=== PATIENT | female | born 1940 | race Caucasian/White ===

== ENCOUNTER 2017-02-09 20:24 | Emergency (ER) | payer MEDICARE, OTHER ==
--- NOTE | 2017-02-09 21:28 | RAD ---
CHEST ONE VIEW: History: Cough. Comparison: None. FINDINGS: There are chronic pleural and parenchymal changes in the lung bases. No pneumothorax. No focal airspa ce consolidation, pneumothorax or effusion. IMPRESSION: 1. No acute intrathoracic abnormality. 2. Partially calcified likely scar versus granulomata right upper lobe. POS: [facility]
[2017-02-09 21:51] LABS: #Basophils 0.1 thou/uL (0.0-0.2); #Eosinphils 0.1 thou/uL (0.0-0.7); #Lymphocytes 1.1 thou/uL (1.20-3.40); #Monocytes 0.8 thou/uL (0.11-0.59); #Neutrophils 7.8 thou/uL (1.40-6.50); %Basophils 0.5 % (0.0-1.0); %Eosinophils 0.7 % (0.0-10.0); %Lymphocytes 11.4 % (21.0-51.0); %Monocytes 8.4 % (0.0-10.0); Hematocrit 40.6 % (36.0-47.0); Mean Platelet Volume 6.6 fL (7.4-10.4); Red Blood Cell (RBC) Count 4.19 mill/uL (4.20-5.40); White Blood Cell (WBC) Count 9.8 thou/uL (4.8-10.8)
[2017-02-09 22:03] LABS: Lactic Acid - Sepsis 1.2 mmol/L (0.5-2.2)
[2017-02-09 22:06] LABS: ALT (SGPT) 12 U/L (8-55); AST (SGOT) 17 U/L (5-34); Alkaline Phosphatase 81 U/L (40-150); Anion Gap 13 mmol/L (10-20); BUN (Urea Nitrogen) 14 mg/dL (9.8-20.1); Bilirubin, Total 0.9 mg/dL (0.2-1.2); CK (CPK) 185 U/L (29-168); Calc. Creatinine Clearance 0 mL/min (70-130); Calcium 9.7 mg/dL (7.8-10.44); Carbon Dioxide 24 mmol/L (23-31); Chloride 102 mmol/L (98-107); Estimated GFR-MDRD 63; Globulin 3.7 g/dL (2.4-3.5); Lipase 9 U/L (8-78); Magnesium 1.8 mg/dL (1.6-2.6); Protein, Total 7.8 g/dL (6.0-8.3)
[2017-02-09 22:11] LABS: Troponin I Less than 0.010 ng/mL (< 0.028)
[2017-02-09] MEDS ORDERED: HYDROcodone/Chlorphen Polis 5 ML UDCUP PO SCH (22:30)
[2017-02-09] MEDS ORDERED: Ketorolac Tromethamine 30 MG/ML VIAL ONE (23:50)
[2017-02-10 00:12] LABS: Bilirubin Negative (Negative); Blood, Urine Negative (Negative); Glucose, Urine (Dipstick) Negative (Negative); Ketone, Urine Negative (Negative); Nitrite Negative (Negative); Protein, Urine (Dipstick) Negative (Neg-Trace)
[2017-02-10] MEDS ORDERED: predniSONE 20 MG TAB ONE (01:16)
--- NOTE | 2017-02-10 07:58 | CT ---
PRELIMINARY REPORT/[facility]/EMERGENCY AFTER HOURS PROCEDURE: EXAM: CT Angiography Chest With Intravenous Contrast CLINICAL HISTORY: 76 years old, female; Pain and signs and symptoms; Cough; Symptoms not specified; Chest pain; Patient HX: F76 presents to ed C/O cough and runny nose and low grade fever since monday. Pt reports she sta rted feeling better yesterday but started having post tussive emesis and chest pain with coughing tod ay. Pt was seen by pcp today and put on abx and tessalon perles but she hasn't been able to keep the doses down. Denies HX of copd or asthma. TECHNIQUE: Axial computed tomographic angiography images of the chest with intravenous contrast using pulmonary embolism protocol. CONTRAST: 63 mL of ISOVUE 370 administered intravenously. COMPARISON: No relevant prior studies available. FINDINGS: Pulmonary arteries: No pulmonary embolism. Aorta: Atherosclerotic calcification of the thoracic aorta, without aneurysm or dissection. Lungs: Normal. Pleural space: Normal. No significant effusion. No pneumothorax. Heart: 3 vessel coronary artery disease. Mediastinum: Small-sized hiatal hernia. Bones/joints: Exostosis arising from the right posterior fifth rib, with associated 1.7 cm soft tissu e attenuation extrapleural nodule, possibly scarring. No acute fracture. No dislocation. Soft tissues: Bilateral breast implants. Multiple calcifications and soft tissue attenuation nodules within the anterior chest wall and breast soft tissues, likely benign. Lymph nodes: Several small lymph nodes within the mediastinum, likely reactive, but nonspecific. IMPRESSION: 1. No pulmonary embolism. 2. Exostosis arising from the right posterior fifth rib, with associated 1.7 cm soft tissue attenuati on extrapleural nodule, possibly scarring. Recommend comparison to previous studies to confirm stabil ity. 3. Incidental/non-acute findings are described above. Thank you for allowing us to participate in the care of your patient. Dictated and Authenticated by: Reg Abernathy MD 02/10/2017 12:22 AM Central Time ([place] & [place]) FINAL REPORT EMERGENCY AFTER HOURS CT ANGIOGRAM THORAX WITH IV CONTRAST AND 3D RECONSTRUCTIONS: Date: 02/10/17 HISTORY: Chest pain, cough, and runny nose, as well as low grade fever since Monday. IMPRESSION: 1. No CT evidence of a pulmonary embolus. 2. Vascular calcifications in the thoracic aorta. The thoracic aorta is normal in caliber without ev idence of an aortic dissection. 3. Small hiatal hernia. 4. Exostosis arising from right posterior medial fifth rib with a associated soft tissue density. Ho wever, this was also present on the prior CT examination in 2008 and is suggestive of a more chronic process. 5. Bibasilar atelectasis versus scarring. 6. Stable bilateral breast implants when compared to study on 06/02/08. Multiple calcifications and soft tissue nodules are again seen in anterior chest wall which may be related to multiple injection granulomata and/or areas of scarring. 7. Prominent mediastinal lymph nodes also seen on prior exam in 2008 and similar to that study inclu ding paratracheal and subcarinal lymph nodes. Findings are in agreement with the preliminary report by [facility]. POS: [id number]
== END 2017-02-10 01:22 | disposition home or self-care (01) ==
LOC: ERS 20:24
DX: R05 Cough (principal); E78.5 Hyperlipidemia, unspecified; I10 Essential (primary) hypertension; Z79.899 Other long term (current) drug therapy
CPT/HCPCS: 36415; 71010; 71275; 80053; 81003; 82553; 83605; 83690; 83735; 84484; 85025; 93005; 96361; 96374; J1885; J7506

== ENCOUNTER 2019-11-12 09:38 | Outpatient (CLI) | payer MEDICARE, OTHER ==
--- NOTE | 2019-11-12 09:58 | RAD ---
PA AND LATERAL CHEST: Date: 11/13/2019 HISTORY: Dyspnea. COMPARISON: 02/09/2017. FINDINGS: No confluent consolidation or infiltrate. There is increased hazy density in the right lower lung whi ch is of uncertain significance. Overlying breast implants may be contributing to this. Vascularity i s normal. Heart size normal. IMPRESSION: Question new hazy infiltrate in the right lower lung. Recommend clinical correlation and follow-up as indicated. POS: [facility]
== END 2019-11-12 09:39 | disposition home or self-care (01) ==
LOC: BICRAD 09:38
PROVIDERS: ATTEND Internal Medicine Critical Care Medicine
DX: R06.00 Dyspnea, unspecified (principal)
CPT/HCPCS: 36415; 71046; 80053; 80061; 83036

== ENCOUNTER 2019-11-25 08:33 | Outpatient (CLI) | payer MEDICARE, OTHER ==
--- NOTE | 2019-11-25 09:05 | CT ---
CT HEAD WITHOUT IV CONTRAST COMPARISON: 9. HISTORY: Headache and dizziness. TECHNIQUE: Axial CT imaging at 5 mm intervals from vertex through skull base without contrast FINDINGS: There is no evidence of an acute infarction, hemorrhage, mass effect, or midline shift. The ventricul ar system is normal in size, shape, and position. Minimal mucosal thickening right maxillary antrum is present. Osseous structures appear intact. IMPRESSION: 1. No acute intracranial abnormality demonstrated.
--- NOTE | 2019-11-25 10:09 | RAD ---
THORACOLUMBAR SPINE 2 VIEWS: HISTORY: Back pain without injury. Mid lower back pain. No radiculopathy. FINDINGS: AP and lateral views of the lower thoracic and lumbar spine demonstrate fairly severe dextroscoliosis of the lumbar vertebral column and levoscoliosis of the upper lumbar lower thoracic vertebral column . Extensive multilevel disk-osteophytosis and facet arthrosis. No acute fracture demonstrated. IMPRESSION: 1. Scoliosis as above. 2. Extensive spondylosis. POS: [facility]
== END 2019-11-25 08:34 | disposition home or self-care (01) ==
LOC: BICCT 08:33
PROVIDERS: ATTEND Internal Medicine
DX: R42 Dizziness and giddiness (principal); M54.9 Dorsalgia, unspecified; M47.815 Spondylosis without myelopathy or radiculopathy, thoracolumbar region; M41.9 Scoliosis, unspecified
CPT/HCPCS: 70450; 72080

== ENCOUNTER 2020-01-24 13:36 | Outpatient (CLI) | payer MEDICARE, OTHER ==
--- NOTE | 2020-01-24 14:25 | RAD ---
EXAM: Chest PA and lateral: HISTORY: Shortness of breath COMPARISON: 11/12/2019 FINDINGS: Heart: Normal cardiac silhouette Aorta: Atherosclerosis Pulmonary vessels: Normal Costophrenic angles: Costophrenic angles are clear. Lungs: Mild hyperinflation with chronic changes. Stable opacities predominantly in the lung bases. Pneumothorax: No pneumothorax Osseous structures: No osseous abnormalities IMPRESSION: 1. No significant interval change. No acute cardiopulmonary process. 2. Chronic changes the lung bases 3. Mild hyperinflation.
== END 2020-01-24 13:37 | disposition home or self-care (01) ==
LOC: BICRAD 13:36
PROVIDERS: ATTEND Internal Medicine Critical Care Medicine
DX: R06.00 Dyspnea, unspecified (principal); R91.8 Other nonspecific abnormal finding of lung field
CPT/HCPCS: 71046

== ENCOUNTER 2021-02-11 12:23 | Outpatient (CLI) | payer MEDICARE | END 2021-02-11 12:24 | disposition home or self-care (01) | LOC: BICRAD 12:23 | PROVIDERS: ATTEND Internal Medicine Critical Care Medicine | DX: R06.00 Dyspnea, unspecified (principal) | CPT/HCPCS: 71046 ==

== ENCOUNTER 2021-06-19 06:18 | Emergency (ER) | payer MEDICARE ==
[2021-06-19 07:12] LABS: #Eosinphils 0.1 thou/uL (0.0-0.7); #Lymphocytes 1.2 thou/uL (1.20-3.40); #Monocytes 0.3 thou/uL (0.11-0.59); %Basophils 0.5 % (0.0-1.0); %Eosinophils 1.3 % (0.0-10.0); %Lymphocytes 25.3 % (21.0-51.0); %Monocytes 7.5 % (0.0-10.0); %Neutrophils 65.5 % (42.0-75.0); Hemoglobin 13.5 g/dL (12.0-16.0); Mean Corpuscular HGB CONC 32.8 g/dL (32.0-36.0); Mean Corpuscular Volume 97.5 fL (78.0-98.0); Mean Platelet Volume 6.6 fL (7.4-10.4); Platelet Count 273 thou/uL (130-400); RBC Distribution Width 12.1 % (11.5-14.5); Red Blood Cell (RBC) Count 4.22 mill/uL (4.20-5.40); White Blood Cell (WBC) Count 4.6 thou/uL (4.8-10.8)
[2021-06-19 07:19] LABS: Bilirubin Negative (Negative); Blood, Urine Negative (Negative); Clarity Clear (Clear); Glucose, Urine (Dipstick) Normal (Negative); Ketone, Urine Negative (Negative); Leukocyte Negative Leu/uL (Negative); Nitrite 1+ (Negative); Protein, Urine (Dipstick) Negative (Neg-Trace); RBC/HPF 0-3 HPF (0-3); Specific Gravity, Urine 1.014 (1.002-1.036); Squamous Epithelial 0-3 HPF (0-3); Urobilinogen Normal mg/dL (Less than 2); WBC/HPF 0-3 HPF (0-3); pH, Urine 6.5 (5.0-9.0)
[2021-06-19 07:21] LABS: Bacteria/HPF 1+ HPF (None Seen)
[2021-06-19 07:30] LABS: ALT (SGPT) 18 U/L (8-55); AST (SGOT) 20 U/L (5-34); Albumin 4.2 g/dL (3.4-4.8); Alkaline Phosphatase 79 U/L (40-110); Anion Gap 16 mmol/L (10-20); BUN (Urea Nitrogen) 18 mg/dL (9.8-20.1); Bilirubin, Total 0.4 mg/dL (0.2-1.2); Calc. Creatinine Clearance 0 mL/min (70-130); Calcium 9.6 mg/dL (7.8-10.44); Carbon Dioxide 25 mmol/L (23-31); Chloride 100 mmol/L (98-107); Globulin 3.5 g/dL (2.4-3.5); Glucose 136 mg/dL (83-110); Lipase 30 U/L (8-78); Potassium 4.2 mmol/L (3.5-5.1); Protein, Total 7.7 g/dL (5.8-8.1); Sodium 137 mmol/L (136-145)
[2021-06-19] MEDS ORDERED: Iopamidol-370 76% 500 ML 1 ML ONE (10:28)
== END 2021-06-19 10:14 | disposition home or self-care (01) ==
LOC: ERS 06:18
DX: N39.0 Urinary tract infection, site not specified (principal); I10 Essential (primary) hypertension; E78.5 Hyperlipidemia, unspecified; Z79.899 Other long term (current) drug therapy
CPT/HCPCS: 36415; 74177; 80053; 81003; 81015; 83690; 85025; 87086; 93005; Q9967

== ENCOUNTER 2021-08-11 09:53 | Outpatient (CLI) | payer MEDICARE | END 2021-08-11 09:54 | disposition home or self-care (01) | LOC: BICULT 09:53 | PROVIDERS: ATTEND Physician Assistant Medical | DX: R10.11 Right upper quadrant pain (principal); K76.0 Fatty (change of) liver, not elsewhere classified | CPT/HCPCS: 76705 ==

== ENCOUNTER 2021-12-24 12:18 | Outpatient (CLI) | payer MEDICARE | END 2021-12-24 12:19 | disposition home or self-care (01) | LOC: TBSIIMAG 12:18 | PROVIDERS: ATTEND Neurological Surgery | DX: M47.26 Other spondylosis with radiculopathy, lumbar region (principal); M47.22 Other spondylosis with radiculopathy, cervical region; M50.121 Cervical disc disorder at C4-C5 level with radiculopathy | CPT/HCPCS: 72141; 72148 ==

== ENCOUNTER 2022-03-22 11:34 | Outpatient (CLI) | payer MEDICARE | END 2022-03-22 11:35 | disposition home or self-care (01) | LOC: BICRAD 11:34 | PROVIDERS: ATTEND Internal Medicine | DX: M54.9 Dorsalgia, unspecified (principal); R07.81 Pleurodynia; M47.814 Spondylosis without myelopathy or radiculopathy, thoracic region | CPT/HCPCS: 72072 ==

== ENCOUNTER 2022-05-04 07:52 | Outpatient (CLI) | payer MEDICARE | END 2022-05-04 07:53 | disposition home or self-care (01) | LOC: RAD 07:52 | PROVIDERS: ATTEND Internal Medicine Critical Care Medicine | DX: R06.00 Dyspnea, unspecified (principal); J98.4 Other disorders of lung | CPT/HCPCS: 71046 ==

== ENCOUNTER 2022-07-04 10:54 | Outpatient (CLI) | payer MEDICARE | END 2022-07-04 10:55 | disposition home or self-care (01) | LOC: BICRAD 10:54 | PROVIDERS: ATTEND Internal Medicine | DX: R10.9 Unspecified abdominal pain (principal); R31.9 Hematuria, unspecified | CPT/HCPCS: 74019; 81001; 87086 ==

== ENCOUNTER 2022-11-25 01:51 | Emergency (ER) | payer MEDICARE ==
[2022-11-25 02:54] LABS: Bacteria/HPF None Seen HPF (None Seen); Bilirubin Negative (Negative); Blood, Urine 3+ (Negative); CAUTI Indications for Culture Pelvic or flank pain; Clarity Clear (Clear); Glucose, Urine (Dipstick) Normal (Negative); Ketone, Urine Negative (Negative); Leukocyte Negative Leu/uL (Negative); Nitrite Negative (Negative); Protein, Urine (Dipstick) Negative (Neg-Trace); RBC/HPF Greater than 50 HPF (0-3); Specific Gravity, Urine 1.008 (1.002-1.036); Squamous Epithelial None Seen HPF (0-3); Urobilinogen Normal mg/dL (Less than 2); WBC/HPF 0-3 HPF (0-3)
[2022-11-25 02:55] LABS: Urine Culture Reflex No No
[2022-11-25] MEDS ORDERED: Ondansetron PF 4 MG/2 ML Vial ONE (02:56)
[2022-11-25] MEDS ORDERED: Famotidine/PF 20 mg/2ml Vial ONE (02:56)
[2022-11-25] MEDS ORDERED: Morphine 4 MG/ML VIAL ONE ×2 (02:56→03:31)
[2022-11-25 02:57] LABS: #Eosinphils 0.1 thou/uL (0.0-0.7); #Monocytes 0.5 thou/uL (0.11-0.59); #Neutrophils 4.5 thou/uL (1.40-6.50); %Basophils 0.6 % (0.0-1.0); %Eosinophils 1.4 % (0.0-10.0); %Lymphocytes 22.9 % (21.0-51.0); %Monocytes 7.2 % (0.0-10.0); %Neutrophils 67.7 % (42.0-75.0); Hematocrit 39.2 % (36.0-47.0); Hemoglobin 13.1 g/dL (12.0-16.0); Mean Corpuscular HGB CONC 33.4 g/dL (32.0-36.0); Mean Corpuscular Hemoglobin 31.1 pg (27.0-31.0); Mean Corpuscular Volume 93.1 fl (78.0-98.0); Mean Platelet Volume 9.4 fL (7.4-10.4); Platelet Count 256 10x3/uL (130-400); RBC Distribution Width 12.4 % (11.5-14.5); Red Blood Cell (RBC) Count 4.21 mill/uL (4.20-5.40); White Blood Cell (WBC) Count 6.6 10x3/uL (4.8-10.8)
[2022-11-25 03:23] LABS: Troponin I 0.014 ng/mL (< 0.028)
[2022-11-25 03:27] LABS: ALT (SGPT) 17 U/L (8-55); AST (SGOT) 18 U/L (5-34); Albumin 4.2 g/dL (3.4-4.8); Alkaline Phosphatase 87 U/L (40-110); Anion Gap 12 mmol/L (10-20); BUN (Urea Nitrogen) 11 mg/dL (9.8-20.1); Bilirubin, Total 0.7 mg/dL (0.2-1.2); Calc. Creatinine Clearance 0 mL/min (70-130); Calcium 9.6 mg/dL (7.8-10.44); Carbon Dioxide 27 mmol/L (23-31); Chloride 100 mmol/L (98-107); Estimated GFR 68; Globulin 3.5 g/dL (2.4-3.5); Glucose 139 mg/dL (83-110); Lipase 14 U/L (8-78); Potassium 3.4 mmol/L (3.5-5.1); Protein, Total 7.7 g/dL (5.8-8.1); Sodium 136 mmol/L (136-145)
[2022-11-25] MEDS ORDERED: Dicyclomine 20 MG TAB ONE (05:36)
[2022-11-25 06:08] LABS: Troponin I Less than 0.010 ng/mL (< 0.028)
[2022-11-25] MEDS ORDERED: Ketorolac Tromethamine 30 MG/ML VIAL ONE (06:46)
[2022-11-25] MEDS ORDERED: Iopamidol-370 76% 500 ML MDV (1 ML CHARGE) ONE (15:23)
== END 2022-11-25 08:20 | disposition home or self-care (01) ==
LOC: ERS 01:51
DX: N13.2 Hydronephrosis with renal and ureteral calculous obstruction (principal); R31.9 Hematuria, unspecified; R91.1 Solitary pulmonary nodule; E78.5 Hyperlipidemia, unspecified; I10 Essential (primary) hypertension; Z79.899 Other long term (current) drug therapy
CPT/HCPCS: 36415; 71275; 74174; 80053; 81001; 83690; 84484; 85025; 87086; 93005; 96361; 96374; 96375; J1885; J2270; J2405; Q9967; S0028

== ENCOUNTER 2022-11-28 10:11 | Inpatient (IN) | payer MEDICARE ==
[~2022-11-28 10:11] MED LIST: Iopamidol-370 76% 500 ML MDV (1 ML CHARGE) ONE
[2022-11-28] MEDS ORDERED: Ketorolac Tromethamine 30 MG/ML VIAL ONE (11:04)
[2022-11-28] MEDS ORDERED: Morphine 4 MG/ML VIAL ONE ×2 (11:04→13:59)
[2022-11-28 11:41] LABS: #Monocytes 0.6 thou/uL (0.11-0.59); #Neutrophils 12.3 thou/uL (1.40-6.50); %Basophils 0.1 % (0.0-1.0); %Lymphocytes 3.6 % (21.0-51.0); %Monocytes 4.5 % (0.0-10.0); %Neutrophils 90.5 % (42.0-75.0); Hematocrit 37.9 % (36.0-47.0); Hemoglobin 12.8 g/dL (12.0-16.0); Mean Corpuscular HGB CONC 33.8 g/dL (32.0-36.0); Mean Corpuscular Hemoglobin 31.1 pg (27.0-31.0); Mean Corpuscular Volume 92.2 fl (78.0-98.0); Platelet Count 203 10x3/uL (130-400); RBC Distribution Width 12.4 % (11.5-14.5); Red Blood Cell (RBC) Count 4.11 mill/uL (4.20-5.40); White Blood Cell (WBC) Count 13.7 10x3/uL (4.8-10.8)
[2022-11-28 11:43] LABS: ALT (SGPT) 36 U/L (8-55); AST (SGOT) 38 U/L (5-34); Albumin 3.8 g/dL (3.4-4.8); Alkaline Phosphatase 96 U/L (40-110); Anion Gap 18 mmol/L (10-20); BUN (Urea Nitrogen) 13 mg/dL (9.8-20.1); Bilirubin, Total 3.1 mg/dL (0.2-1.2); Calc. Creatinine Clearance 0 mL/min (70-130); Carbon Dioxide 24 mmol/L (23-31); Chloride 95 mmol/L (98-107); Estimated GFR 46; Globulin 3.4 g/dL (2.4-3.5); Glucose 154 mg/dL (83-110); Lipase Less than 4 U/L (8-78); Potassium 3.2 mmol/L (3.5-5.1); Protein, Total 7.2 g/dL (5.8-8.1); Sodium 134 mmol/L (136-145)
[2022-11-28 11:45] LABS: Troponin I 0.077 ng/mL (< 0.028)
[2022-11-28 11:53] LABS: INR-International Normal Ratio 1.1; PTT 31.5 sec (22.9-36.1)
[2022-11-28] MEDS ORDERED: Aspirin 325 MG TAB ONE (12:52)
[2022-11-28] MEDS ORDERED: Potassium Chloride 20 MEQ TAB ONE (12:52)
[2022-11-28] MEDS ORDERED: Piperacillin/Tazobactam 4.5 GM VIAL ONE (14:00)
[2022-11-28] MEDS ORDERED: Ondansetron PF 4 MG/2 ML Vial IVP PRN (14:57)
[2022-11-28 15:15] LABS: Troponin I 0.068 ng/mL (< 0.028)
[2022-11-28 15:21] LABS: Magnesium 1.7 mg/dL (1.6-2.6)
[2022-11-28] MEDS: Heparin 5,000 UNITS/ML VIAL SC SCH ×2 (15:59→20:50)
[2022-11-28] MEDS: Lactated Ringer's 1,000 ML IV SCH (16:16)
[2022-11-28] MEDS ORDERED: Morphine 4 MG/ML VIAL SLOW IVP PRN (16:48)
[2022-11-28] MEDS ORDERED: Piperacillin/Tazobactam 3.375 GM in Sodium Chloride 0.9% 100 ML IVPB SCH (18:00)
[2022-11-28 18:02] LABS: Lactic Acid 1.8 mmol/L (0.5-2.2)
[2022-11-28 18:13] LABS: Troponin I 0.071 ng/mL (< 0.028)
[2022-11-28] MEDS: hydrALAZINE 20 MG/ML VIAL SLOW IVP PRN (18:26)
[2022-11-28] MEDS: Piperacillin/Tazobactam 3.375 GM in Sodium Chloride 0.9% 100 ML IVPB SCH (18:27)
[2022-11-28] MEDS: Ketorolac Tromethamine 30 MG/ML VIAL IVP PRN (20:49)
[2022-11-28] MEDS ORDERED: Electrolyte Replacement Protocol 1 EACH FS SCH (23:15)
[2022-11-29] MEDS: Piperacillin/Tazobactam 3.375 GM in Sodium Chloride 0.9% 100 ML IVPB SCH ×3 (03:59→18:48)
[2022-11-29 05:46] LABS: ALT (SGPT) 35 U/L (8-55); AST (SGOT) 41 U/L (5-34); Albumin 3.3 g/dL (3.4-4.8); Alkaline Phosphatase 98 U/L (40-110); Anion Gap 16 mmol/L (10-20); BUN (Urea Nitrogen) 18 mg/dL (9.8-20.1); Bilirubin, Total 1.9 mg/dL (0.2-1.2); Calc. Creatinine Clearance 65 mL/min (70-130); Calcium 8.6 mg/dL (7.8-10.44); Carbon Dioxide 22 mmol/L (23-31); Chloride 101 mmol/L (98-107); Estimated GFR 53; Globulin 3.3 g/dL (2.4-3.5); Glucose 103 mg/dL (83-110); Magnesium 1.8 mg/dL (1.6-2.6); Potassium 3.7 mmol/L (3.5-5.1); Protein, Total 6.6 g/dL (5.8-8.1); Sodium 135 mmol/L (136-145)
[2022-11-29] MEDS ORDERED: Magnesium 2 GM/50 ML(in water) 2 GM in Premix Bag 1 BAG IVPB SCH (06:15)
[2022-11-29] MEDS ORDERED: Ondansetron PF 4 MG/2 ML Vial ONE (06:51)
[2022-11-29] MEDS ORDERED: fentaNYL PF 100 MCG/2 ML SYRINGE ONE (07:09)
[2022-11-29] MEDS ORDERED: Iopamidol 30 ML ONE (07:10)
[2022-11-29] MEDS ORDERED: PROPOFOL 200 MG/20 ML VIAL ONE (07:39)
[2022-11-29] MEDS ORDERED: Lidocaine 1% PF 5 ML VIAL ONE (07:39)
[2022-11-29] MEDS ORDERED: Phenazopyridine HCl 100 MG TAB PO PRN (08:26)
[2022-11-29] MEDS: Lactated Ringer's 1,000 ML IV SCH ×2 (09:27→18:47)
[2022-11-29] MEDS: Trospium 20 MG TAB PO SCH ×2 (09:28→21:17)
[2022-11-29] MEDS: Amlodipine 5 MG TAB PO SCH (09:29)
[2022-11-29] MEDS: Rosuvastatin 10 MG TAB PO SCH (09:29)
[2022-11-29] MEDS: Ketorolac Tromethamine 30 MG/ML VIAL IVP PRN (09:30)
[2022-11-29] MEDS: Heparin 5,000 UNITS/ML VIAL SC SCH ×3 (09:42→21:17)
[2022-11-29] MEDS ORDERED: Iopamidol 370 76% 100 ML VIAL ONE (10:27)
[2022-11-29 10:59] LABS: Hematocrit 32.4 % (36.0-47.0); Hemoglobin 10.7 g/dL (12.0-16.0); Mean Corpuscular Hemoglobin 30.6 pg (27.0-31.0); Mean Corpuscular Volume 92.6 fl (78.0-98.0); Mean Platelet Volume 10.4 fL (7.4-10.4); Platelet Count 131 10x3/uL (130-400); RBC Distribution Width 12.9 % (11.5-14.5); White Blood Cell (WBC) Count 12.4 10x3/uL (4.8-10.8)
[2022-11-29 11:15] LABS: Delete Auto Diff?? YES; Manual Diff?? YES
[2022-11-29 12:20] LABS: Band 33 % (5-11); Burr Cells SLIGHT = 2-5 cells HPF (0-1); CellaVision Operator ID LAB.GE; Giant Platelets 0.8 % (0-5); Large Platelets 2.5 % (0-5); Lymphocytes 3 % (21-51); Metamyelocyte 6 % (0-0); Monocytes 3 % (0-10); Myelocyte 1 % (0-0); Neutrophil 53 % (42-75); Platelet Adequacy Comment Platelets Normal; Poikilocytosis SLIGHT = 6-15 cells HPF (0-5); Polychromasia SLIGHT = 2-3 cells HPF (0-2); Reactive Lymphocytes 2 % (0-10); Total Cell Count 120; Vacuoles MODERATE
[2022-11-29] MEDS ORDERED: Ketorolac Tromethamine 30 MG/ML VIAL IVP SCH (12:30)
[2022-11-29] MEDS: Senokot S 8.6-50 MG TAB PO PRN (13:25)
[2022-11-29] MEDS ORDERED: Morphine 4 MG/ML VIAL ONE (16:28)
[2022-11-29] MEDS: Acetaminophen 325 MG TAB PO PRN (21:16)
[2022-11-30] MEDS: Piperacillin/Tazobactam 3.375 GM in Sodium Chloride 0.9% 100 ML IVPB SCH ×3 (04:13→18:11)
[2022-11-30 05:17] LABS: #Eosinphils 0.1 thou/uL (0.0-0.7); #Monocytes 0.7 thou/uL (0.11-0.59); #Neutrophils 8.3 thou/uL (1.40-6.50); %Basophils 0.3 % (0.0-1.0); %Eosinophils 1.3 % (0.0-10.0); %Lymphocytes 8.2 % (21.0-51.0); %Monocytes 6.8 % (0.0-10.0); %Neutrophils 82.7 % (42.0-75.0); Hematocrit 32.6 % (36.0-47.0); Hemoglobin 10.7 g/dL (12.0-16.0); Mean Corpuscular HGB CONC 32.8 g/dL (32.0-36.0); Mean Corpuscular Hemoglobin 31.1 pg (27.0-31.0); Mean Corpuscular Volume 94.8 fl (78.0-98.0); Mean Platelet Volume 10.4 fL (7.4-10.4); Platelet Count 133 10x3/uL (130-400); RBC Distribution Width 13.2 % (11.5-14.5); Red Blood Cell (RBC) Count 3.44 mill/uL (4.20-5.40); White Blood Cell (WBC) Count 10.1 10x3/uL (4.8-10.8)
[2022-11-30 07:07] LABS: Anion Gap 14 mmol/L (10-20); BUN (Urea Nitrogen) 25 mg/dL (9.8-20.1); Calc. Creatinine Clearance 78 mL/min (70-130); Calcium 8.5 mg/dL (7.8-10.44); Carbon Dioxide 25 mmol/L (23-31); Chloride 102 mmol/L (98-107); Estimated GFR 66; Glucose 82 mg/dL (83-110); Magnesium 2.6 mg/dL (1.6-2.6); Potassium 3.6 mmol/L (3.5-5.1); Sodium 137 mmol/L (136-145)
[2022-11-30] MEDS: Lactated Ringer's 1,000 ML IV SCH ×2 (08:20→21:09)
[2022-11-30] MEDS: Amlodipine 5 MG TAB PO SCH (08:25)
[2022-11-30] MEDS: Senokot S 8.6-50 MG TAB PO PRN (08:26)
[2022-11-30] MEDS: Rosuvastatin 10 MG TAB PO SCH (08:26)
[2022-11-30] MEDS: Trospium 20 MG TAB PO SCH ×2 (08:26→20:56)
[2022-11-30] MEDS: Heparin 5,000 UNITS/ML VIAL SC SCH ×2 (08:27→15:44)
[2022-11-30] MEDS: hydrALAZINE 20 MG/ML VIAL SLOW IVP PRN (12:35)
[2022-11-30] MEDS ORDERED: Morphine 2 MG/ML VIAL SLOW IVP PRN (15:42)
[2022-11-30] MEDS ORDERED: Meperidine HCl/PF 25 MG/ML VIAL SLOW IVP SCH (16:30)
[2022-11-30] MEDS ORDERED: fentaNYL 50 mcg/mL 1 mL Vial SLOW IVP SCH (16:30)
[2022-11-30] MEDS: Acetaminophen 325 MG TAB PO PRN (16:31)
[2022-11-30] MEDS ORDERED: Furosemide 20 MG/2 ML VIAL SLOW IVP SCH (18:15)
[2022-11-30] MEDS ORDERED: dilTIAZem 125 MG in Sodium Chloride 0.9% 100 ML IVPB SCH (18:15)
[2022-11-30] MEDS ORDERED: metroNIDAZOLE 500 MG in Premix Bag 1 BAG IVPB SCH (22:30)
[2022-11-30] MEDS: cefTRIAXone\\ROCEPHIN 2 GM in Sodium Chloride 0.9% 100 ML IVPB SCH (22:56)
[2022-12-01] MEDS: metroNIDAZOLE 500 MG in Premix Bag 1 BAG IVPB SCH ×3 (06:21→21:16)
[2022-12-01] MEDS: Amlodipine 5 MG TAB PO SCH (11:14)
[2022-12-01] MEDS: Rosuvastatin 10 MG TAB PO SCH (11:15)
[2022-12-01] MEDS: Trospium 20 MG TAB PO SCH ×2 (11:15→21:14)
[2022-12-01] MEDS ORDERED: EPINEPHrine 1 MG/ML AMP ONE (11:51)
[2022-12-01] MEDS ORDERED: Bupivacaine 0.25% HCL 30 ML VIAL ONE (11:51)
[2022-12-01] MEDS ORDERED: fentaNYL 50 mcg/mL 1 mL Vial ONE ×3 (12:27→15:14)
[2022-12-01] MEDS ORDERED: fentaNYL PF 100 MCG/2 ML SYRINGE ONE (12:28)
[2022-12-01] MEDS ORDERED: Ketamine 50 MG/ML (10ML VIAL) ONE (12:28)
[2022-12-01] MEDS ORDERED: Ondansetron PF 4 MG/2 ML Vial ONE ×2 (12:53→14:25)
[2022-12-01] MEDS ORDERED: Glycopyrrolate 0.2 MG/ML 5 ML SYRINGE ONE (12:53)
[2022-12-01] MEDS ORDERED: Rocuronium Bromide 10 MG/ML (10ML VIAL) ONE (12:53)
[2022-12-01] MEDS ORDERED: Lidocaine 1% PF 5 ML VIAL ONE (12:53)
[2022-12-01] MEDS ORDERED: NEOSTIGMINE 3 MG/3 ML SYR 3 MG/3 ML SYRINGE ONE (12:53)
[2022-12-01] MEDS ORDERED: PROPOFOL 200 MG/20 ML VIAL ONE (12:53)
[2022-12-01] MEDS ORDERED: Morphine Sulfate 2 MG/ML SYRINGE SLOW IVP PRN (14:58)
[2022-12-01] MEDS ORDERED: Ondansetron HCl/PF 4 MG/2 ML Vial IVP PRN (14:58)
[2022-12-01] MEDS ORDERED: Promethazine HCl 25 MG/ML VIAL IM PRN (14:58)
[2022-12-01] MEDS ORDERED: metroNIDAZOLE 500 MG/100 ML BAG ONE (15:25)
[2022-12-01] MEDS ORDERED: Morphine 4 MG/ML VIAL ONE (15:39)
[2022-12-01] MEDS ORDERED: Morphine 2 MG/ML VIAL ONE ×4 (15:52→16:28)
[2022-12-01] MEDS: Lactated Ringer's 1,000 ML IV SCH ×2 (18:25→22:20)
[2022-12-01] MEDS ORDERED: HYDROcodone/Acetaminophen 5/325 mg Tablet PO SCH (18:45)
[2022-12-01] MEDS: cefTRIAXone\\ROCEPHIN 2 GM in Sodium Chloride 0.9% 100 ML IVPB SCH (22:20)
[2022-12-02] MEDS: HYDROcodone/Acetaminophen 5/325 mg Tablet PO PRN ×5 (00:31→23:09)
[2022-12-02] MEDS: metroNIDAZOLE 500 MG in Premix Bag 1 BAG IVPB SCH ×2 (06:14→14:05)
[2022-12-02] MEDS ORDERED: Furosemide 20 MG/2 ML VIAL SLOW IVP SCH (08:00)
[2022-12-02] MEDS ORDERED: Potassium Chloride 20 MEQ TAB PO SCH (08:00)
[2022-12-02] MEDS: Trospium 20 MG TAB PO SCH ×2 (09:51→21:58)
[2022-12-02] MEDS: Losartan 25 MG TAB PO SCH (09:51)
[2022-12-02] MEDS: dilTIAZem CD 120 MG CAP PO SCH ×2 (09:51→09:52)
[2022-12-02] MEDS: Rosuvastatin 10 MG TAB PO SCH ×2 (11:05→21:58)
[2022-12-02] MEDS ORDERED: Sodium Chloride 0.65% Nasal 44 ML BOT EA NARE PRN (18:07)
[2022-12-02] MEDS: cefTRIAXone\\ROCEPHIN 2 GM in Sodium Chloride 0.9% 100 ML IVPB SCH (23:07)
[2022-12-03] MEDS: HYDROcodone/Acetaminophen 5/325 mg Tablet PO PRN ×3 (06:17→20:34)
[2022-12-03] MEDS ORDERED: Ciprofloxacin 500 MG TAB PO SCH (09:00)
[2022-12-03] MEDS: Losartan 25 MG TAB PO SCH (09:27)
[2022-12-03] MEDS: Trospium 20 MG TAB PO SCH ×2 (09:27→20:34)
[2022-12-03] MEDS: dilTIAZem CD 120 MG CAP PO SCH (09:27)
[2022-12-03] MEDS: Aspirin 81 mg Enteric Coated Tablet PO SCH (09:27)
[2022-12-03] MEDS: Rosuvastatin 10 MG TAB PO SCH (20:34)
[2022-12-03] MEDS: Ciprofloxacin 500 MG TAB PO SCH (20:34)
[2022-12-04] MEDS: HYDROcodone/Acetaminophen 5/325 mg Tablet PO PRN ×3 (01:58→20:12)
[2022-12-04] MEDS: Ciprofloxacin 500 MG TAB PO SCH (06:34)
[2022-12-04 07:59] LABS: Hematocrit 32.1 % (36.0-47.0); Hemoglobin 10.8 g/dL (12.0-16.0); Mean Corpuscular HGB CONC 33.6 g/dL (32.0-36.0); Mean Corpuscular Hemoglobin 30.8 pg (27.0-31.0); Mean Corpuscular Volume 91.5 fl (78.0-98.0); Mean Platelet Volume 10.7 fL (7.4-10.4); Platelet Count 221 10x3/uL (130-400); RBC Distribution Width 13.6 % (11.5-14.5); Red Blood Cell (RBC) Count 3.51 mill/uL (4.20-5.40); White Blood Cell (WBC) Count 8.9 10x3/uL (4.8-10.8)
[2022-12-04 08:20] LABS: Anion Gap 12 mmol/L (10-20); BUN (Urea Nitrogen) 12 mg/dL (9.8-20.1); Calc. Creatinine Clearance 99 mL/min (70-130); Calcium 8.4 mg/dL (7.8-10.44); Carbon Dioxide 27 mmol/L (23-31); Chloride 100 mmol/L (98-107); Estimated GFR 86; Glucose 114 mg/dL (83-110); Potassium 3.2 mmol/L (3.5-5.1); Sodium 136 mmol/L (136-145)
[2022-12-04 08:29] LABS: Delete Auto Diff?? YES; Manual Diff?? YES
[2022-12-04] MEDS ORDERED: Potassium Chloride 20 MEQ TAB PO SCH (08:30)
[2022-12-04] MEDS: dilTIAZem CD 120 MG CAP PO SCH (09:18)
[2022-12-04] MEDS: Trospium 20 MG TAB PO SCH ×2 (09:18→20:12)
[2022-12-04] MEDS: Aspirin 81 mg Enteric Coated Tablet PO SCH (09:19)
[2022-12-04] MEDS: Losartan 25 MG TAB PO SCH (09:19)
[2022-12-04 09:24] LABS: Anisocytosis SLIGHT = 6-15 cells HPF (0-5); Band 4 % (5-11); Burr Cells SLIGHT = 2-5 cells HPF (0-1); CellaVision Operator ID LAB.CMB; Eosinophils 4 % (0-10); Large Platelets 0.9 % (0-5); Lymphocytes 9 % (21-51); Metamyelocyte 1 % (0-0); Monocytes 7 % (0-10); Neutrophil 70 % (42-75); Other Cell Types 2.8; Platelet Adequacy Comment Platelets Normal; Polychromasia SLIGHT = 2-3 cells HPF (0-2); Total Cell Count 106
[2022-12-04] MEDS: cefTRIAXone\\ROCEPHIN 2 GM in Sodium Chloride 0.9% 100 ML IVPB SCH (12:59)
[2022-12-04] MEDS: Rosuvastatin 10 MG TAB PO SCH (20:12)
[2022-12-05] MEDS: HYDROcodone/Acetaminophen 5/325 mg Tablet PO PRN (02:24)
[2022-12-05 08:43] LABS: Anion Gap 15 mmol/L (10-20); BUN (Urea Nitrogen) 12 mg/dL (9.8-20.1); Calc. Creatinine Clearance 99 mL/min (70-130); Calcium 8.4 mg/dL (7.8-10.44); Carbon Dioxide 23 mmol/L (23-31); Chloride 101 mmol/L (98-107); Estimated GFR 86; Glucose 142 mg/dL (83-110); Potassium 3.6 mmol/L (3.5-5.1); Sodium 135 mmol/L (136-145)
[2022-12-05] MEDS: Losartan 25 MG TAB PO SCH (09:05)
[2022-12-05] MEDS: dilTIAZem CD 120 MG CAP PO SCH (09:05)
[2022-12-05] MEDS: Aspirin 81 mg Enteric Coated Tablet PO SCH (09:05)
[2022-12-05] MEDS: Trospium 20 MG TAB PO SCH ×2 (09:05→20:03)
[2022-12-05 09:53] VITALS: BMI 31.1
[2022-12-05] MEDS: cefTRIAXone\\ROCEPHIN 2 GM in Sodium Chloride 0.9% 100 ML IVPB SCH (13:07)
[2022-12-05] MEDS: Acetaminophen 325 MG TAB PO PRN (20:03)
[2022-12-05] MEDS: Rosuvastatin 10 MG TAB PO SCH (20:03)
[2022-12-06] MEDS: HYDROcodone/Acetaminophen 5/325 mg Tablet PO PRN ×2 (00:15→20:42)
[2022-12-06] MEDS: Senokot S 8.6-50 MG TAB PO PRN (00:15)
[2022-12-06] MEDS: Losartan 25 MG TAB PO SCH (10:39)
[2022-12-06] MEDS: dilTIAZem CD 120 MG CAP PO SCH (10:40)
[2022-12-06] MEDS: cefTRIAXone\\ROCEPHIN 2 GM in Sodium Chloride 0.9% 100 ML IVPB SCH (10:41)
[2022-12-06] MEDS: Aspirin 81 mg Enteric Coated Tablet PO SCH (10:41)
[2022-12-06] MEDS: Trospium 20 MG TAB PO SCH ×2 (10:41→20:42)
[2022-12-06] MEDS: Rosuvastatin 10 MG TAB PO SCH (20:42)
[2022-12-07 07:46] VITALS: TEMP 97.8
[2022-12-07] MEDS ORDERED: Polyethylene Glycol 3350 17 GM Packet PO PRN (08:43)
[2022-12-07] MEDS ORDERED: Milk Of Magnesia 30 ML UDCUP PO PRN (08:43)
[2022-12-07] MEDS: Trospium 20 MG TAB PO SCH (09:22)
[2022-12-07] MEDS: Losartan 25 MG TAB PO SCH (09:22)
[2022-12-07] MEDS: Aspirin 81 mg Enteric Coated Tablet PO SCH (09:22)
[2022-12-07] MEDS: dilTIAZem CD 120 MG CAP PO SCH (09:22)
[2022-12-07] MEDS: cefTRIAXone\\ROCEPHIN 2 GM in Sodium Chloride 0.9% 100 ML IVPB SCH (09:27)
[2022-12-07 09:29] VITALS: BP 162/74
== END 2022-12-07 14:38 | DRG 853 ==
LOC: ERS 10:11 → 2NO 14:16 → IMCU/EMU 11-30 18:24
PROVIDERS: ADMIT Internal Medicine; ATTEND Internal Medicine
PROC: 3E03329 Introduction of Other Anti-infective into Peripheral Vein, Percutaneous Approach (ICD-10-PCS; 2022-11-28)
PROC: 0T768DZ Dilation of Right Ureter with Intraluminal Device, Via Natural or Artificial Opening Endoscopic (ICD-10-PCS; principal; 2022-11-29)
PROC: BT1D1ZZ Fluoroscopy of Right Kidney, Ureter and Bladder using Low Osmolar Contrast (ICD-10-PCS; 2022-11-29)
PROC: 3E033XZ Introduction of Vasopressor into Peripheral Vein, Percutaneous Approach (ICD-10-PCS; 2022-12-01)
PROC: 0FT44ZZ Resection of Gallbladder, Percutaneous Endoscopic Approach (ICD-10-PCS; 2022-12-05)
DX: A41.59 Other Gram-negative sepsis (principal); J96.01 Acute respiratory failure with hypoxia; N17.9 Acute kidney failure, unspecified; E87.1 Hypo-osmolality and hyponatremia; K81.0 Acute cholecystitis; I45.2 Bifascicular block; I47.1 Supraventricular tachycardia; N13.2 Hydronephrosis with renal and ureteral calculous obstruction; G47.30 Sleep apnea, unspecified; E78.5 Hyperlipidemia, unspecified; R77.8 Other specified abnormalities of plasma proteins; K82.8 Other specified diseases of gallbladder; N28.1 Cyst of kidney, acquired; E66.01 Morbid (severe) obesity due to excess calories; M19.90 Unspecified osteoarthritis, unspecified site; E03.9 Hypothyroidism, unspecified; R91.1 Solitary pulmonary nodule; N18.2 Chronic kidney disease, stage 2 (mild); I12.9 Hypertensive chronic kidney disease with stage 1 through stage 4 chronic kidney disease, or unspecified chronic kidney disease; E11.22 Type 2 diabetes mellitus with diabetic chronic kidney disease; E87.6 Hypokalemia; R31.9 Hematuria, unspecified; R53.1 Weakness; Z90.10 Acquired absence of unspecified breast and nipple; Z90.49 Acquired absence of other specified parts of digestive tract; Z79.899 Other long term (current) drug therapy; Z68.30 Body mass index [BMI] 30.0-30.9, adult; Z98.82 Breast implant status; Z87.442 Personal history of urinary calculi; Z90.710 Acquired absence of both cervix and uterus; I25.10 Atherosclerotic heart disease of native coronary artery without angina pectoris; R53.81 Other malaise
CPT/HCPCS: 36415; 36416; 70450; 71045; 71275; 72125; 72193; 74174; 74420; 76705; 78227; 80048; 80053; 81001; 83605; 83690; 83735; 83880; 84484; 85025; 85379; 85610; 85730; 87040; 87077; 87086; 87149; 87186; 88304; 93005; 93010; 94760; 96361; 96365; 96374; 96375; 96376; A9537; C1889; C2617; J0171; J0360; J0696; J1644; J1650; J1885; J1940; J2175; J2270; J2272; J2405; J2543; J2704; J3010; J3475; J3490; J7120; Q9967; S0020; S0028

== ENCOUNTER 2022-12-16 13:42 | Outpatient (CLI) | payer MEDICARE ==
[2022-12-16 15:33] LABS: Hematocrit 34.2 % (34.9-44.5); Hemoglobin 11.4 g/dL (12.0-15.5); Mean Corpuscular HGB CONC 33.3 g/dL (32.0-36.0); Mean Corpuscular Hemoglobin 31.1 pg (27.0-33.0); Mean Corpuscular Volume 93.4 fl (81.6-98.3); Mean Platelet Volume 9.6 fl (7.4-10.4); Platelet Count 465 10x3/uL (150-450); RBC Distribution Width 13.4 % (11.5-14.5); Red Blood Cell (RBC) Count 3.66 10x6/uL (3.90-5.03); White Blood Cell (WBC) Count 5.9 10x3/uL (3.5-10.5)
[2022-12-16 15:47] LABS: PTT 28.2 sec (22.0-33.0); Prothrombin Time 10.7 sec (9.5-12.1)
[2022-12-16 15:49] LABS: Anion Gap 18 mmol/L (10-20); BUN (Urea Nitrogen) 17 mg/dL (9.8-20.1); Calc. Creatinine Clearance 0 mL/min (70-130); Calcium 9.1 mg/dL (7.8-10.44); Carbon Dioxide 16 mmol/L (23-31); Chloride 104 mmol/L (98-107); Estimated GFR 46; Glucose 117 mg/dL (83-110); Potassium 5.3 mmol/L (3.5-5.1); Sodium 133 mmol/L (136-145)
== END 2022-12-16 13:43 | disposition home or self-care (01) ==
LOC: LABBT 13:42
PROVIDERS: ATTEND Urology
DX: Z01.818 Encounter for other preprocedural examination (principal)
CPT/HCPCS: 80048; 85027; 85610; 85730; 93005; 93010

== ENCOUNTER 2022-12-21 07:06 | Day surgery (SDC) | payer MEDICARE ==
[2022-12-16 14:47] VITALS: BMI 30.1
[2022-12-21] MEDS ORDERED: LevoFLOXacin 500 mg/D5W 100 ML BAG ONE (09:34)
[2022-12-21] MEDS ORDERED: Iopamidol 30 ML ONE (09:48)
[2022-12-21] MEDS ORDERED: fentaNYL PF 100 MCG/2 ML SYRINGE ONE (10:00)
[2022-12-21] MEDS ORDERED: Ondansetron PF 4 MG/2 ML Vial ONE (10:28)
[2022-12-21] MEDS ORDERED: Rocuronium Bromide 10 MG/ML (10ML VIAL) ONE (10:28)
[2022-12-21] MEDS ORDERED: Dexamethasone 20 MG/5 ML VIAL ONE (10:28)
[2022-12-21] MEDS ORDERED: Lidocaine 1% PF 5 ML VIAL ONE (10:28)
[2022-12-21] MEDS ORDERED: PROPOFOL 200 MG/20 ML VIAL ONE (10:28)
[2022-12-21] MEDS ORDERED: Oxybutynin 5 MG TAB ONE (11:33)
[2022-12-21] MEDS ORDERED: Phenazopyridine HCl 100 MG TAB ONE (11:33)
== END 2022-12-21 12:45 ==
LOC: SDC 07:06
PROVIDERS: ATTEND Urology
PROC: 0TC38ZZ Extirpation of Matter from Right Kidney Pelvis, Via Natural or Artificial Opening Endoscopic (ICD-10-PCS; principal; 2022-12-21)
PROC: 0TC68ZZ Extirpation of Matter from Right Ureter, Via Natural or Artificial Opening Endoscopic (ICD-10-PCS; 2022-12-21)
PROC: 0T768DZ Dilation of Right Ureter with Intraluminal Device, Via Natural or Artificial Opening Endoscopic (ICD-10-PCS; 2022-12-21)
DX: N20.2 Calculus of kidney with calculus of ureter (principal); I10 Essential (primary) hypertension; E03.9 Hypothyroidism, unspecified; I25.10 Atherosclerotic heart disease of native coronary artery without angina pectoris; N28.1 Cyst of kidney, acquired; R31.0 Gross hematuria; I73.9 Peripheral vascular disease, unspecified; Z90.710 Acquired absence of both cervix and uterus; Z96.653 Presence of artificial knee joint, bilateral; Z88.1 Allergy status to other antibiotic agents; Z91.030 Bee allergy status; Z79.899 Other long term (current) drug therapy; Z98.890 Other specified postprocedural states
CPT/HCPCS: 74018; 74420; 82365; 88300; C1747; C1769; C2617; J1100; J1956; J2405; J2704; Q9967

== ENCOUNTER 2023-01-09 14:16 | Outpatient (CLI) | payer MEDICARE | END 2023-01-09 14:17 | disposition home or self-care (01) | LOC: BICRAD 14:16 | PROVIDERS: ATTEND Internal Medicine | DX: M25.552 Pain in left hip (principal); M53.3 Sacrococcygeal disorders, not elsewhere classified; M47.898 Other spondylosis, sacral and sacrococcygeal region | CPT/HCPCS: 72170 ==

== ENCOUNTER 2023-04-17 12:25 | Outpatient (CLI) | payer MEDICARE | END 2023-04-17 12:26 | disposition home or self-care (01) | LOC: BICULT 12:25 | PROVIDERS: ATTEND Urology | DX: N20.2 Calculus of kidney with calculus of ureter (principal); N28.1 Cyst of kidney, acquired; Z98.890 Other specified postprocedural states | CPT/HCPCS: 74018; 76770 ==

== ENCOUNTER 2024-03-28 10:48 | Outpatient (CLI) | payer MEDICARE | END 2024-03-28 10:49 | disposition home or self-care (01) | LOC: BICMRI 10:48 | PROVIDERS: ATTEND Family Medicine Sports Medicine | DX: M47.26 Other spondylosis with radiculopathy, lumbar region (principal); M47.817 Spondylosis without myelopathy or radiculopathy, lumbosacral region; M47.815 Spondylosis without myelopathy or radiculopathy, thoracolumbar region | CPT/HCPCS: 72148 ==